=== PATIENT | male | born 1960 | race Caucasian/White ===

== ENCOUNTER → 2017-02-26 | Outpatient (REF) | payer BC ==
[~2017-02-26] MED LIST: /AMIO20TA OR; /AUGM875TA OR; /ESOM40CA OR; /ONDA4TA OR; /WARF5TA OR; ACET65TA OR; COLA100C2 OR; EPLERENONE PO; FERR325T OR; FLAG500T OR; HEMORRHOIDAL; LOPR50TA OR; PERC7.5T8 OR; SENN15TA2 OR; TOPR50TA OR; VITA250T OR
== END ==
LOC: M LAB REF 13:41
PROVIDERS: ATTEND Family Medicine
DX: E78.5 Hyperlipidemia, unspecified (principal)

== ENCOUNTER → 2017-04-03 | Day surgery (SDC) | payer BC ==
[~2017-04-03] VITALS: Ht 167.6 cm; Wt 82.6 kg
[~2017-04-03] MED LIST changes: +EPINEPHrine 1MG/ML INJ 30ML MD-VIAL As Ordered ONE; +GLYCOPYRROLATE INJ 0.2 MG/ML 2 ML VIAL As Ordered ONE; +LIDOCAINE 1% MDV 20ML VIAL ONE; +LIDOCAINE 2% INJ 100 MG/5 ML SDV (FOR ANES.) As Ordered ONE; +LR 1,000 ML IV SCH; +MEPIVACAINE HCL 1.5% 30 ML VIAL (J0670) ONE; +METO-207 PO; +METO25TA74 PO; +MIDAZOLAM INJ 2 MG/2 ML VIAL (J2250) As Ordered ONE; +MORPHINE 4 MG/ML 1ML SYRINGE IV PRN; +NEOSTIGMINE 1MG/ML 5 ML SYRINGE (J2710) As Ordered ONE; +NORCO, ANEXSIA 5/325MG TABLET (HYDROcodone/ACETAMINOPHEN) PO PRN; +ONDANSETRON 4MG/2ML VIAL (J2405) As Ordered ONE; +ONDANSETRON 4MG/2ML VIAL (J2405) IV PRN; +PERCOCET 5MG/325MG TAB PO PRN; +PHENYLephrine HCL 500 MCG/5 ML (100MCG/ML) SYRINGE (J2370) As Ordered ONE; +PRAD150C PO; +PROPOFOL 200 MG/20 ML VIAL As Ordered ONE; +PROPOFOL 500 MG/50 ML VIAL As Ordered ONE; +ROCURONIUM BROMIDE 50 MG/5 ML VIAL As Ordered ONE; +ROPIvacaine 0.5% 30 ML INJECTION (J2795) ONE; +SUCCINYLCHOLINE 100 MG/5 ML SYRINGE (J0330) As Ordered ONE; +[UNRECOGNIZED DRUG - CODE] PO; +dexameTHASONE 4 MG/ML 1ML VIAL (J1100) As Ordered ONE; +ePHEDrine SULFATE 25 MG/5 ML(5MG/ML) SYRINGE As Ordered ONE; +fentaNYL 100 MCG/2 ML INJECTION (J3010) As Ordered ONE; +fentaNYL 100 MCG/2 ML INJECTION (J3010) IV PRN
[2017-04-03] MEDS: MIDAZOLAM INJ 2 MG/2 ML VIAL (J2250) IV PRN ×2 (07:20→07:22)
[2017-04-03 12:30] VITALS: BP 112/71
--- NOTE | 2017-04-03 13:05 | RO ---
DATE OF PROCEDURE: 04/03/2017 PREPROCEDURE DIAGNOSES: 1. Right shoulder rotator cuff tear. 2. Acromioclavicular (AC) joint arthritis. 3. Biceps tendinitis. POSTPROCEDURE DIAGNOSES: 1. Right shoulder rotator cuff tear. 2. AC joint arthritis. 3. Biceps tendinitis. PROCEDURE: 1. Right shoulder arthroscopic rotator cuff repair. 2. Right shoulder arthroscopic distal clavicle excision. 3. Right shoulder arthroscopic biceps tenotomy. 4. Right shoulder open subpectoralis biceps tenodesis. SURGEON: Ismael Roy MD MASSEUR/MASSEUSE: Mrs. Evita Gaffney ANESTHESIA: General endotracheal anesthesia with right interscalene nerve block. COMPLICATIONS: None. ESTIMATED BLOOD LOSS: FINDINGS: He had a small anterior supraspinatus rotator cuff tendon tear, quite a bit of biceps tendinitis, and there was a small upper border subscapularis tendon tear. The AC joint was quite disrupted with the meniscoid fibrotic tissue, clearly frayed and emanating out of the AC joint. DESCRIPTION OF PROCEDURE: After antibiotics were given intravenously preoperatively and a successful right interscalene nerve block and then a general endotracheal anesthetic was established, and he was placed in a semi beach chair position. A spider shoulder ling was utilized. The right shoulder was then prepped and draped in the usual sterile fashion. Then, after appropriate time-out, routine diagnostic arthroscopy was performed through a posterior portal, revealing significant biceps tendinitis, upper border subscapularis tear, some subluxation of the biceps medially. The rotator cuff tear was evident from within the joint above at the anterior portion of the supraspinatus insertion. No other pathology was identifiable other than a significant amount of hyperemic synovitis. I elected to perform the biceps tenotomy because of the subluxation of the biceps and the upper border subscapularis tear. That was done with the ablator wand. Then, I placed the scope in the subacromial space and performed a bursectomy and then established a lateral working cannula with an 8.25 x 7 cm threaded cannula, eventually identifying the supraspinatus rotator cuff tendon tear. After the bursectomy had been performed, I debrided the footprint of the supraspinatus tendon with a bur and a shaver back to good bleeding bone; and then, I was able to pass a FiberTape with using a SpeedFix technique in a horizontal mattress fashion up into the rotator cuff and then fold it back down over the top of the rotator cuff tear and load it on to a SwiveLock anchor laterally. I used the punch and the tap because he had very hard bone and then inserted the SwiveLock with good tension on the FiberTapes providing a nice watertight closure of the rotator cuff. Photographs were taken. I did also perform a formal subacromial decompression with the bur to provide a better space and also release the coracoacromial (CA) ligament around the front of the shoulder. Then, I had adequate visualization of the distal clavicle. It was quite unstable with the fibrotic tissue and the meniscoid tissue clearly frayed and coming out of the joint, consistent with that joint being symptomatic. Thus, I established an anterior working portal directly into the AC joint and using the ablator wand to be sure I had good visualization and then performed a formal distal clavicle excision with an acromionizer bur. Photographs were taken before and after to document. After copiously irrigating out the subacromial space, I removed the arthroscopy instruments and made a small longitudinal incision near the axillary fold, used the Bovie cautery to coagulate down to the tissues, and then dissected down beneath the pectoralis muscle into the bicipital groove, identified the biceps tendon, and it was pulled out of the joint. Then, I used a whipstitch at the myotendinous junction with the FiberLoop and cut off the excess. The bicipital groove was cleared with the Bovie cautery, and I made a small drill hole with the spade tip drill from [employer], loaded the proximal biceps button onto the anchor, and then dunked it appropriately, and then pulled the sutures down, such that the tendon dunked right up against the groove, and then passed one limb of the suture with the free needle, and then tied it down securely, providing good firm proximal fixation of the biceps. The wounds were copiously irrigated, and all of the arthroscopy portals, as well as the small incisions for the biceps tenodesis, were closed with nylon sutures, covered by Adaptic, dry sterile bulky dressings, and then placed back into the abduction pillow brace, then awakened from general endotracheal anesthetic after having tolerated the procedure well, transferred to the recovery room in stable condition. There were no intraoperative complications.
== END ==
LOC: M SDC 05:43
PROVIDERS: ATTEND Orthopaedic Surgery
DX: M75.111 Incomplete rotator cuff tear or rupture of right shoulder, not specified as traumatic (principal); M19.011 Primary osteoarthritis, right shoulder; M75.21 Bicipital tendinitis, right shoulder; K26.9 Duodenal ulcer, unspecified as acute or chronic, without hemorrhage or perforation; I48.0 Paroxysmal atrial fibrillation; I42.1 Obstructive hypertrophic cardiomyopathy; I11.9 Hypertensive heart disease without heart failure; R94.31 Abnormal electrocardiogram [ECG] [EKG]; I44.7 Left bundle-branch block, unspecified; I34.0 Nonrheumatic mitral (valve) insufficiency; G47.33 Obstructive sleep apnea (adult) (pediatric); E78.2 Mixed hyperlipidemia; G25.81 Restless legs syndrome; Z79.899 Other long term (current) drug therapy; Z79.01 Long term (current) use of anticoagulants
CPT/HCPCS: 23430; 29824; 29826; 29827; 64415; 88304; C1713; J0330; J0670; J0690; J1100; J2250; J2370; J2405; J2710; J2795; J3010

== ENCOUNTER 2017-10-20 06:31 | Day surgery (SDC) | payer BC ==
[2017-10-20] VITALS (7 sets, daily range): BP systolic 89–105; BP diastolic 52–59
[~2017-10-20] VITALS: Ht 167.6 cm; Wt 85.9 kg
[~2017-10-20 06:31] MED LIST changes: -EPINEPHrine 1MG/ML INJ 30ML MD-VIAL As Ordered ONE; -GLYCOPYRROLATE INJ 0.2 MG/ML 2 ML VIAL As Ordered ONE; -LIDOCAINE 1% MDV 20ML VIAL ONE; -LIDOCAINE 2% INJ 100 MG/5 ML SDV (FOR ANES.) As Ordered ONE; -LR 1,000 ML IV SCH; -MEPIVACAINE HCL 1.5% 30 ML VIAL (J0670) ONE; -METO-207 PO; +METO1TAB32 PO; +METO1TAB7 PO; -METO25TA74 PO; -MIDAZOLAM INJ 2 MG/2 ML VIAL (J2250) As Ordered ONE; -MORPHINE 4 MG/ML 1ML SYRINGE IV PRN; -NEOSTIGMINE 1MG/ML 5 ML SYRINGE (J2710) As Ordered ONE; -NORCO, ANEXSIA 5/325MG TABLET (HYDROcodone/ACETAMINOPHEN) PO PRN; -ONDANSETRON 4MG/2ML VIAL (J2405) As Ordered ONE; -ONDANSETRON 4MG/2ML VIAL (J2405) IV PRN; -PERCOCET 5MG/325MG TAB PO PRN; -PHENYLephrine HCL 500 MCG/5 ML (100MCG/ML) SYRINGE (J2370) As Ordered ONE; -PROPOFOL 200 MG/20 ML VIAL As Ordered ONE; -PROPOFOL 500 MG/50 ML VIAL As Ordered ONE; -ROCURONIUM BROMIDE 50 MG/5 ML VIAL As Ordered ONE; -ROPIvacaine 0.5% 30 ML INJECTION (J2795) ONE; -SUCCINYLCHOLINE 100 MG/5 ML SYRINGE (J0330) As Ordered ONE; -dexameTHASONE 4 MG/ML 1ML VIAL (J1100) As Ordered ONE; -ePHEDrine SULFATE 25 MG/5 ML(5MG/ML) SYRINGE As Ordered ONE; -fentaNYL 100 MCG/2 ML INJECTION (J3010) As Ordered ONE; -fentaNYL 100 MCG/2 ML INJECTION (J3010) IV PRN
[2017-10-20] MEDS ORDERED: NS 1,000 ML IV SCH (07:27)
[2017-10-20] MEDS ORDERED: PANTOPRAZOLE 40MG INJ (PROTONIX) (C9113) IV ONE (07:30)
[2017-10-20] MEDS ORDERED: METOCLOPRAMIDE INJ 10MG/2ML VIAL (J2765) IV ONE (07:30)
[2017-10-20] MEDS: MORPHINE 4 MG/ML 1ML SYRINGE IV PRN ×2 (08:27→10:50)
[2017-10-20 08:36] LABS: BASO % 0.4 % (0.0-1.0); EOS # 0.2 10^3/uL (0.0-0.50); EOS % 2.2 % (0.0-3.0); IMMATURE GRANULOCYTE % 0.3 % (0-0); LYMPH % 9.5 % (24.0-44.0); MEAN CORPUSCULAR HEMOGLOBIN 31.6 pg (27.0-33.0); MEAN CORPUSCULAR VOLUME 90.2 fl (80.0-96.0); MONO # 0.8 10^3/uL (0.0-0.8); MONO % 7.5 % (0.0-5.0); NEUTROPHILS # 8.4 10^3/uL (1.8-7.7); NEUTROPHILS % 80.1 % (36.0-66.0); PLATELET COUNT, AUTOMATED 193 10^3/uL (150-450); WHITE BLOOD COUNT 10.5 10^3/uL (4.0-10.0)
[2017-10-20 09:01] LABS: ALBUMIN 3.5 GM/DL (3.2-5.2); ALBUMIN/GLOBULIN RATIO 1.21 (1.00-1.93); ALKALINE PHOSPHATASE 85 U/L (45-117); ALT/SGPT 26 U/L (12-78); ANION GAP 7 MEQ/L (8-16); AST/SGOT 19 U/L (7-37); BILIRUBIN,DIRECT 0.3 MG/DL (0.0-0.2); BILIRUBIN,TOTAL 1.9 MG/DL (0.2-1.0); BLOOD UREA NITROGEN 14 MG/DL (7-18); CALCIUM LEVEL 8.2 MG/DL (8.5-10.1); CARBON DIOXIDE LEVEL 24 MEQ/L (21-32); CHLORIDE LEVEL 108 MEQ/L (98-107); CREATININE FOR GFR 0.91 MG/DL (0.70-1.30); GLOMERULAR FILTRATION RATE > 60.0 (>56); GLUCOSE, FASTING 110 MG/DL (70-105); POTASSIUM SERUM 4.6 MEQ/L (3.5-5.1); SODIUM LEVEL 139 MEQ/L (136-145); TOTAL PROTEIN 6.4 GM/DL (6.4-8.2)
[2017-10-20] MEDS ORDERED: ISOVUE-370 76% 100ML VIAL (Q9967) As Ordered ONE (09:34)
[2017-10-20] MEDS ORDERED: PIPERACILLIN/TAZOBACTAM SOD 3.375 GM in APPROPRIATE DILUENT 1 EA IV ONE (11:00)
--- NOTE | 2017-10-20 11:09 | REP ---
CT ABDOMEN AND PELVIS WITH CONTRAST: HISTORY: Epigastric pain. CONTRAST: Isovue-370, 100 mL. COMPARISON: 05/03/2015 A small curvilinear calcification is present overlying the posterior wall of the gallbladder. This represents calcification of the gallbladder wall or possibly a small gallstone. The liver, pancreas, spleen, adrenal glands and kidneys are normal in appearance. A 4 cm partially calcified mesenteric cyst is present unchanged compared to the previous study. There is no mass or adenopathy. A small 1.4 cm fat containing umbilical hernia is present. The visualized lungs are clear. The appendix is enlarged measuring 13 mm in width. A 3 mm appendicolith is present. Edema is present in the surrounding tissue. The prostate gland and urinary bladder are normal in appearance. Minimal degenerative change is present in the spine. IMPRESSION: 1. There is a small linear calcification overlying the posterior wall of the gallbladder. This may represent calcification in the gallbladder wall or possibly a small gallstone. 2. 4 cm partially calcified mesenteric cyst, unchanged compared to the previous study. 3. Small 1.4 cm fat containing umbilical hernia. 4. Findings consistent with appendicitis. Signed by Greg Garcia MD 10/20/2017 04:49 P
[2017-10-20] MEDS: idaruCIZUmab 2.5 GM in APPROPRIATE DILUENT 1 EA IV SCH ×2 (11:47→11:54)
[2017-10-20] MEDS ORDERED: BUPIVACAINE/EPIN 0.5% 30 ML VIAL As Ordered ONE (12:16)
[2017-10-20] MEDS ORDERED: MIDAZOLAM INJ 2 MG/2 ML VIAL (J2250) As Ordered ONE (12:23)
[2017-10-20] MEDS ORDERED: LIDOCAINE 2% INJ 100 MG/5 ML SDV (FOR ANES.) As Ordered ONE (12:23)
[2017-10-20] MEDS ORDERED: PROPOFOL 200 MG/20 ML VIAL As Ordered ONE (12:23)
[2017-10-20] MEDS ORDERED: NEOSTIGMINE 10 MG/10 ML VIAL (J2710) As Ordered ONE (12:23)
[2017-10-20] MEDS ORDERED: ROCURONIUM BROMIDE 50 MG/5 ML VIAL As Ordered ONE (12:23)
[2017-10-20] MEDS ORDERED: fentaNYL 250 MCG/5 ML INJECTION (J3010) As Ordered ONE (12:23)
[2017-10-20] MEDS ORDERED: ONDANSETRON 4MG/2ML VIAL (J2405) As Ordered ONE (12:24)
[2017-10-20] MEDS ORDERED: GLYCOPYRROLATE INJ 0.2 MG/ML 2 ML VIAL As Ordered ONE (12:24)
[2017-10-20] MEDS ORDERED: METOCLOPRAMIDE INJ 10MG/2ML VIAL (J2765) As Ordered ONE (12:24)
[2017-10-20] MEDS ORDERED: PHENYLephrine HCL 500 MCG/5 ML (100MCG/ML) SYRINGE (J2370) As Ordered ONE (13:02)
[2017-10-20] MEDS ORDERED: ePHEDrine SULFATE 25 MG/5 ML(5MG/ML) SYRINGE As Ordered ONE (13:03)
[2017-10-20] MEDS ORDERED: PERCOCET 5MG/325MG TAB PO PRN (14:00)
[2017-10-20] MEDS ORDERED: NORCO, ANEXSIA 5/325MG TABLET (HYDROcodone/ACETAMINOPHEN) PO PRN ×2 (14:00)
[2017-10-20] MEDS ORDERED: MEPERIDINE INJ 25 MG/ML VIAL (J2175) IV PRN (14:00)
[2017-10-20] MEDS ORDERED: ONDANSETRON 4MG/2ML VIAL (J2405) IV PRN ×2 (14:00)
[2017-10-20] MEDS ORDERED: MORPHINE 4 MG/ML 1ML SYRINGE IV PRN (14:00)
[2017-10-20] MEDS ORDERED: KETOROLAC 30 MG/ML VIAL (J1885) IV PRN (14:00)
[2017-10-20] MEDS ORDERED: fentaNYL 100 MCG/2 ML INJECTION (J3010) IV PRN (14:00)
[2017-10-20] MEDS ORDERED: LR 1,000 ML IV SCH ×2 (14:00)
--- NOTE | 2017-10-20 16:18 | ECGEPIP ---
Stationary ECG Study [facility] Test Date: 2017-10-20 Pat Name: HUDSON GARCIA Department: Room: - Gender: M Intervention Manager: : 1960 Requested By: Kumar Wright Order Number: [id number] Reading MD: Mariella Scott Measurements Intervals [place] Rate: 82 P: W[place]: 0 QRS: -39 QRSD: 169 T: 129 QT: 462 QTc: 540 Interpretive Statements NSR 1ST DEGREE BLOCK PROLONG QT LEFT BUNDLE BRANCH BLOCK SIMILAR 08/15/12 EXCEPT MORE EXAGGERATED REPOLAR CHANGES Electronically Signed On 10-20-2017 16:18:35 EST by Mareilla Scott
[2017-10-20] MEDS: KETOROLAC 30 MG/ML VIAL (J1885) IV SCH ×2 (17:32→23:32)
[2017-10-20] MEDS: PIPERACILLIN/TAZOBACTAM SOD 3.375 GM in APPROPRIATE DILUENT 1 EA IV SCH ×2 (17:33→23:32)
--- NOTE | 2017-10-20 18:06 | ECGEPIP ---
Stationary ECG Study [facility] - ED Test Date: 2017-10-20 Pat Name: HUDSON GARCIA Department: Room: - Gender: M Gusset Edger: JUSTIN : 1960 Requested By: Jessie Fournier Order Number: [id number] Reading MD: Santiago Valentino Measurements Intervals [place] Rate: 55 P: 43 SD: 227 QRS: -35 QRSD: 166 T: 131 QT: 515 QTc: 496 Interpretive Statements SINUS BRADYCARDIA WITH FIRST DEGREE AV BLOCK LEFT AXIS DEVIATION LEFT BUNDLE BRANCH BLOCK SIMILAR TO 07/15/12 Electronically Signed On 10-20-2017 18:06:11 EST by Santiago Valentino
[2017-10-20] MEDS ORDERED: NS 500 ML IV ONE (20:15)
[2017-10-20] MEDS: LR 1,000 ML IV SCH (21:30)
[2017-10-21] VITALS: BP 96/55
[2017-10-21 04:00] VITALS: BP 101/58
[2017-10-21] MEDS: KETOROLAC 30 MG/ML VIAL (J1885) IV SCH (05:58)
[2017-10-21] MEDS: PIPERACILLIN/TAZOBACTAM SOD 3.375 GM in APPROPRIATE DILUENT 1 EA IV SCH (05:58)
[2017-10-21] MEDS: LR 1,000 ML IV SCH (05:58)
[2017-10-21] MEDS ORDERED: AUGM500T34 PO (08:37)
[2017-10-21 08:45] VITALS: BP 93/65
[2017-10-21] MEDS ORDERED: NORC1TAB4 PO (17:09)
--- NOTE | 2017-10-29 17:22 | RO ---
DATE OF PROCEDURE: 10/20/2017 PREOPERATIVE DIAGNOSIS: Acute appendicitis. POSTOPERATIVE DIAGNOSIS: Acute appendicitis. OPERATIVE PROCEDURE: Laparoscopic appendectomy. SURGEON: Tim Jaramillo MD BAR PORTER: ANESTHESIA: General endotracheal anesthesia ESTIMATED BLOOD LOSS: Minimal. FLUIDS: Crystalloid. BRIEF PROCEDURE SUMMARY: The patient was brought to the operating room, was given general anesthesia. After adequate anesthesia and preoperative antibiotics were given the patient was prepped and draped in usual sterile fashion. Next, a supraumbilical incision was made with a skin knife. Electrocautery was used cut through dermis, underlying subcutaneous tissue and the fascia was grasped, elevated and Veress needle placed into the abdominal cavity, insufflated to 15 mm of pressure. Two 5 mm ports were placed direct visualization, and next the appendix was seen; the cecum was appreciated and the appendix was mobilized off the surrounding tissue using some blunt and sharp dissection as well as the harmonic scalpel. Eventually, the mesentery of the appendix was taken with harmonic scalpel all the way to the base the cecum. Then a SAFIA stapler was used to staple the base of the appendix and taken down in an EndoCatch bag. The right side of the abdomen was copiously irrigated until clear. All the operative field was clean and dry and all trocars were removed under direct visualization. #0 Vicryl was used close fascia at the umbilicus and all incisions were closed with #4-0 Vicryl. Steri-Strips and dry sterile dressing was applied. The patient was awakened, extubated, brought to recovery room awake, alert, and hemodynamically stable. Sponge and needle counts correct times two.
== END 2017-10-21 10:30 | disposition home or self-care (01) ==
LOC: M ED 06:31 → M SDC 11:14 → M PED 15:00 → M SDC 10-21 10:30
PROVIDERS: ATTEND Surgery
DX: K35.3 Acute appendicitis with localized peritonitis (principal); I10 Essential (primary) hypertension; G47.30 Sleep apnea, unspecified; I48.91 Unspecified atrial fibrillation; Z98.890 Other specified postprocedural states; Z79.899 Other long term (current) drug therapy; Z79.01 Long term (current) use of anticoagulants
CPT/HCPCS: 36415; 44970; 74177; 80048; 80076; 82550; 82553; 83690; 85025; 88304; 93005; 93041; 96361; 96365; 96366; 96375; 96376; 99285; C9113; J1885; J2250; J2370; J2405; J2543; J2710; J2765; J3010; J3490; Q9967

== ENCOUNTER 2018-12-01 09:11 | Day surgery (SDC) | payer BC ==
[~2018-12-01] VITALS: Ht 167.6 cm; Wt 84.4 kg
[~2018-12-01 09:11] MED LIST changes: +AUGM500T34 PO; +NORC1TAB4 PO; +NS 1,000 ML IV ONE; +PROPOFOL 200 MG/20 ML VIAL As Ordered ONE
--- NOTE | 2018-12-01 11:08 | ROOR ---
Patient Name: Munir Witt Procedure Date: 12/01/2018 10:46 AM Date of : 1960 Age: 58 Room: [facility] Gender: Male Note Status: Finalized Procedure: Total Colonoscopy to Cecum Indications: High risk colon cancer surveillance: Personal history of colonic polyps, Last colonoscopy: 2012 Providers: Du Feliciano MD Referring MD: Lyndon Watson MD Requesting Provider: Medicines: Monitored Anesthesia Care Complications: No immediate complications. Procedure: Pre-Anesthesia Assessment: - The heart rate, respiratory rate, oxygen saturations, blood pressure, adequacy of pulmonary ventilation, and response to care were monitored throughout the procedure. The Colonoscope was introduced through the anus and advanced to the cecum, identified by appendiceal orifice and ileocecal valve. The colonoscopy was performed without difficulty. The patient tolerated the procedure well. The quality of the bowel preparation was excellent. Findings: The perianal and digital rectal examinations were normal. Non-bleeding internal hemorrhoids were found during retroflexion. The hemorrhoids were small and Grade I (internal hemorrhoids that do not prolapse). No other significant abnormalities were identified in a careful examination of the remainder of the colon. The exam was otherwise without abnormality on direct and retroflexion views. Impression: - Non-bleeding internal hemorrhoids. - The examination was otherwise normal on direct and retroflexion views. - No specimens collected. - The exam was otherwise normal to the cecum. Recommendation: - Patient has a contact number available for emergencies. The signs and symptoms of potential delayed complications were discussed with the patient. Return to normal activities tomorrow. Written discharge instructions were provided to the patient. - High fiber diet. - Discharge patient to home. - Continue present medications. - Repeat colonoscopy in 5 years for surveillance. - Return to referring physician. - The findings and recommendations were discussed with the patient's family. Du Feliciano MD Du Feliciano MD 12/01/2018 11:08:09 AM This report has been signed electronically. Number of Addenda: 0 Note Initiated On: 12/01/2018 10:46 AM Estimated Blood Loss: Estimated blood loss: none.
[2018-12-01 11:36] VITALS: BP 116/77
== END 2018-12-01 11:37 | disposition home or self-care (01) ==
LOC: M OPP 09:11
PROVIDERS: ATTEND Internal Medicine Gastroenterology
DX: Z86.010 Personal history of colon polyps (principal); K64.0 First degree hemorrhoids; G47.30 Sleep apnea, unspecified; Z79.899 Other long term (current) drug therapy

== ENCOUNTER 2022-03-30 19:10 | Emergency (ER) | payer BC, OTHER ==
[~2022-03-30] VITALS: Ht 170.2 cm; Wt 90.9 kg
[~2022-03-30 19:10] MED LIST changes: -/AMIO20TA OR; -/ESOM40CA OR; -/ONDA4TA OR; -/WARF5TA OR; +AMIO1TAB OR; +COUM1TAB17 OR; +METO-743 OR; +NEXI1CAP3 OR; -NORC1TAB4 PO; +NORC1TAB7 PO; -NS 1,000 ML IV ONE; +ONDA-1 OR; -PRAD150C PO; +PRAD150C6 PO; -PROPOFOL 200 MG/20 ML VIAL As Ordered ONE; -TOPR50TA OR
[2022-03-30] MEDS ORDERED: ACET-683 PO (19:41)
[2022-03-31 00:44] VITALS: BP 136/85
[2022-03-31] MEDS ORDERED: VENTAER INH (06:26)
[2022-03-31] MEDS ORDERED: BENZ200C70 PO (06:26)
== END 2022-03-31 06:53 | disposition home or self-care (01) ==
LOC: M ED 19:10
DX: U07.1 COVID-19 (principal); R05.9 Cough, unspecified; R51.9 Headache, unspecified; I25.10 Atherosclerotic heart disease of native coronary artery without angina pectoris; I10 Essential (primary) hypertension; Z79.899 Other long term (current) drug therapy

== ENCOUNTER 2024-05-07 12:26 | Day surgery (SDC) | payer OTHER ==
[~2024-05-07] VITALS: Ht 167.6 cm; Wt 92.5 kg
[~2024-05-07 12:26] MED LIST changes: +ACET-683 PO; +BENZ200C70 PO; +FAMO10TA50 PO; +NS 1,000 ML IV ONE; +VENTAER INH
[2024-05-07] MEDS ORDERED: ePHEDrine SULFATE 25 MG/5 ML(5MG/ML) SYRINGE As Ordered ONE (14:13)
[2024-05-07] MEDS ORDERED: propofoL 200 MG/20 ML VIAL As Ordered ONE (14:16)
[2024-05-07 14:27] VITALS: TEMP 97.7
[2024-05-07 14:46] VITALS: BP 108/55; O2SAT 96
== END 2024-05-07 14:51 | disposition home or self-care (01) ==
LOC: M OPP 12:26
PROVIDERS: ATTEND Surgery
DX: Z12.11 Encounter for screening for malignant neoplasm of colon (principal); Z86.010 Personal history of colon polyps; K63.5 Polyp of colon; I48.91 Unspecified atrial fibrillation; G47.30 Sleep apnea, unspecified; Z99.89 Dependence on other enabling machines and devices; Z79.01 Long term (current) use of anticoagulants; Z79.02 Long term (current) use of antithrombotics/antiplatelets; Z79.1 Long term (current) use of non-steroidal anti-inflammatories (NSAID); Z79.899 Other long term (current) drug therapy

== ENCOUNTER 2024-06-13 11:30 | Observation (INO) | payer OTHER ==
[~2024-06-13] VITALS: Ht 167.6 cm; Wt 97.0 kg
[~2024-06-13 11:30] MED LIST changes: +FAMOTIDINE 20 MG TAB PO SCH; -NS 1,000 ML IV ONE
[2024-06-13] MEDS ORDERED: FAMO40TA3 PO (11:49)
[2024-06-13] MEDS ORDERED: ATOR1TAB19 PO (11:49)
[2024-06-13] MEDS ORDERED: DABIGATRAN (11:49)
[2024-06-13 12:05] LABS: BASO # 0.1 10^3/uL (0.0-0.2); EOS # 0.2 10^3/uL (0.0-0.5); EOS % 2.6 % (0.0-3.0); HEMATOCRIT 45.9 % (42.0-52.0); HEMOGLOBIN 15.8 g/dl (13.5-17.5); LYMPH # 1.3 10^3/uL (1.5-5.0); LYMPH % 20.3 % (24.0-44.0); MEAN CORPUSCULAR HEMOGLOBIN 31.2 pg (27.0-33.0); MEAN CORPUSCULAR HGB CONC 34.4 g/dl (32.0-36.5); MEAN CORPUSCULAR VOLUME 90.7 fl (80.0-96.0); MONO # 0.4 10^3/uL (0.0-0.8); MONO % 6.6 % (2.0-8.0); NEUTROPHILS # 4.3 10^3/uL (1.5-8.5); PLATELET COUNT, AUTOMATED 210 10^3/uL (150-450); RED BLOOD COUNT 5.06 10^6/uL (4.30-6.10); WHITE BLOOD COUNT 6.3 10^3/uL (4.0-10.0)
[2024-06-13 12:24] LABS: INR 1.37; PARTIAL THROMBOPLASTIN TIME 35.8 SECONDS (24.8-34.2); PROTHROMBIN TIME 16.5 SECONDS (12.5-14.5)
[2024-06-13 12:29] LABS: BLOOD UREA NITROGEN 23 MG/DL (9-23); CALCIUM LEVEL 8.8 MG/DL (8.3-10.6); CARBON DIOXIDE LEVEL 25 MMOL/L (20-31); CHLORIDE LEVEL 108 MMOL/L (98-107); CK-MB VALUE MASS 1.4 NG/ML (<3.6); CPK CREATINE PHOSPHOKINASE 78 U/L (46-171); CREATININE FOR GFR 1.19 MG/DL (0.70-1.30); GLOMERULAR FILTRATION RATE > 60.0 (>49); GLUCOSE, FASTING 113 MG/DL (74-106); MAGNESIUM LEVEL 2.1 MG/DL (1.8-2.4); MB/CK RELATIVE INDEX 1.79 (< OR =4); POTASSIUM SERUM 4.8 MMOL/L (3.5-5.1); SODIUM LEVEL 139 MMOL/L (136-145)
[2024-06-13] MEDS ORDERED: ISOVUE-370 76% 100ML VIAL As Ordered ONE (12:38)
[2024-06-13 13:28] LABS: MB/CK RELATIVE INDEX 0.89 (< OR =4)
[2024-06-13] MEDS ORDERED: ACETAMINOPHEN TAB 650MG DOSE (2X325MG) PO PRN (14:30)
[2024-06-13] MEDS ORDERED: ONDANSETRON 4MG 2ML VIAL IV PRN (14:30)
[2024-06-13] MEDS ORDERED: HOME MED LIST COMPLETE! XX SCH (15:25)
[2024-06-13] MEDS: NS 1,000 ML IV ONE ×2 (15:29→16:10)
[2024-06-13 18:39] VITALS: BP 114/71; TEMP 96.3; O2SAT 96
[2024-06-13 19:42] VITALS: BP 112/69; TEMP 98.4; O2SAT 94
[2024-06-13] MEDS: DABIGATRAN ETEXILATE 75 MG CAP (PRADAXA) PO SCH (21:16)
[2024-06-13] MEDS: ATORVASTATIN 10 MG TAB PO SCH (21:16)
[2024-06-13 23:08] VITALS: BP 106/63; TEMP 97.8; O2SAT 96
[2024-06-14 03:17] VITALS: BP 105/59; TEMP 97.3; O2SAT 96
[2024-06-14 03:54] LABS: BASO # 0.1 10^3/uL (0.0-0.2); BASO % 0.7 % (0.0-1.0); EOS # 0.3 10^3/uL (0.0-0.5); EOS % 4.1 % (0.0-3.0); HEMATOCRIT 41.5 % (42.0-52.0); HEMOGLOBIN 14.3 g/dl (13.5-17.5); LYMPH # 2.1 10^3/uL (1.5-5.0); LYMPH % 30.4 % (24.0-44.0); MEAN CORPUSCULAR HGB CONC 34.5 g/dl (32.0-36.5); MONO # 0.5 10^3/uL (0.0-0.8); MONO % 7.9 % (2.0-8.0); NEUTROPHILS # 3.9 10^3/uL (1.5-8.5); NEUTROPHILS % 56.6 % (36.0-66.0); PLATELET COUNT, AUTOMATED 181 10^3/uL (150-450); RED BLOOD COUNT 4.61 10^6/uL (4.30-6.10); WHITE BLOOD COUNT 6.8 10^3/uL (4.0-10.0)
[2024-06-14 04:20] LABS: ALKALINE PHOSPHATASE 79 U/L (46-116); ALT/SGPT 97 U/L (7.0-40); AST/SGOT 50 U/L (<34); BILIRUBIN,TOTAL 1.3 MG/DL (0.3-1.2); BLOOD UREA NITROGEN 19 MG/DL (9-23); CALCIUM LEVEL 8.2 MG/DL (8.3-10.6); CARBON DIOXIDE LEVEL 24 MMOL/L (20-31); CHLORIDE LEVEL 110 MMOL/L (98-107); CREATININE FOR GFR 0.95 MG/DL (0.70-1.30); GLOMERULAR FILTRATION RATE > 60.0 (>49); GLUCOSE, FASTING 106 MG/DL (74-106); MAGNESIUM LEVEL 2.1 MG/DL (1.8-2.4); PHOSPHORUS LEVEL 3.3 MG/DL (2.4-5.1); SODIUM LEVEL 140 MMOL/L (136-145); TOTAL PROTEIN 5.5 G/DL (5.7-8.2)
[2024-06-14 07:33] VITALS: BP 114/74; TEMP 96.9; O2SAT 95
[2024-06-14] MEDS: FAMOTIDINE 20 MG TAB PO SCH (09:00)
== END 2024-06-14 09:15 | disposition home or self-care (01) ==
LOC: M ED 11:30 → INTOOBSV 14:19 → M ED INP 14:19 → M PCU 18:25
PROVIDERS: ADMIT General Practice; ATTEND General Practice
DX: I44.2 Atrioventricular block, complete (principal); I95.2 Hypotension due to drugs; R55 Syncope and collapse; T44.7X5A Adverse effect of beta-adrenoreceptor antagonists, initial encounter; T46.2X5A Adverse effect of other antidysrhythmic drugs, initial encounter; I42.1 Obstructive hypertrophic cardiomyopathy; Z98.890 Other specified postprocedural states; I48.91 Unspecified atrial fibrillation; I10 Essential (primary) hypertension; G25.81 Restless legs syndrome; E78.5 Hyperlipidemia, unspecified; G47.33 Obstructive sleep apnea (adult) (pediatric); Z87.19 Personal history of other diseases of the digestive system; E66.3 Overweight; R00.1 Bradycardia, unspecified; R01.1 Cardiac murmur, unspecified; I44.0 Atrioventricular block, first degree; I44.7 Left bundle-branch block, unspecified; G93.41 Metabolic encephalopathy; M16.0 Bilateral primary osteoarthritis of hip; Z87.442 Personal history of urinary calculi; Z82.49 Family history of ischemic heart disease and other diseases of the circulatory system; Z79.899 Other long term (current) drug therapy; Z79.02 Long term (current) use of antithrombotics/antiplatelets
CPT/HCPCS: 36415; 71045; 71275; 80047; 80048; 80053; 82550; 82553; 83735; 84100; 84484; 85025; 85610; 85730; 93005; 93041; 93306; 94760; 99285; Q9967

== ENCOUNTER → 2024-06-19 | Outpatient (CLI) | payer OTHER ==
[~2024-06-19] MED LIST changes: +ATOR1TAB19 PO; +DABIGATRAN; +FAMO40TA3 PO; -FAMOTIDINE 20 MG TAB PO SCH
== END ==
LOC: M EKG 08:07
PROVIDERS: ATTEND Internal Medicine Cardiovascular Disease
DX: I48.0 Paroxysmal atrial fibrillation (principal); I44.0 Atrioventricular block, first degree; I44.7 Left bundle-branch block, unspecified; Z53.9 Procedure and treatment not carried out, unspecified reason

== ENCOUNTER → 2024-07-09 | Outpatient (CLI) | payer OTHER | LOC: M PLAIMG 07:27 | PROVIDERS: ATTEND Internal Medicine Cardiovascular Disease | DX: I42.1 Obstructive hypertrophic cardiomyopathy (principal); I48.0 Paroxysmal atrial fibrillation; I34.0 Nonrheumatic mitral (valve) insufficiency ==

== ENCOUNTER → 2025-03-11 | Outpatient (CLI) | payer OTHER | LOC: M PLAIMG 07:59 | PROVIDERS: ATTEND Physician Assistant | DX: I42.1 Obstructive hypertrophic cardiomyopathy (principal); I77.810 Thoracic aortic ectasia; I08.0 Rheumatic disorders of both mitral and aortic valves; I42.2 Other hypertrophic cardiomyopathy ==